=== PATIENT | male | born 1965 | race African-American/Black ===

== ENCOUNTER 2016-11-03 13:08 | Observation (INO) ==
[2016-11-03] MEDS ORDERED: Acetaminophen 325 MG TABLET PO PRN (15:58)
[2016-11-03] MEDS ORDERED: tiZANidine 4 MG TABLET PO PRN (15:58)
[2016-11-03] MEDS ORDERED: HydrOXYzine SYP 10 MG/5 ML UDC PO PRN (15:58)
[2016-11-03] MEDS ORDERED: Ondansetron 4 MG/2 ML VIAL IVP PRN (15:58)
[2016-11-03] MEDS ORDERED: *HR* OxyCODONE Immed Rel 5 MG TABLET PO PRN (15:58)
[2016-11-03] MEDS ORDERED: Naloxone 0.4 MG/ML INJ IVP PRN (15:58)
[2016-11-03] MEDS ORDERED: *HR* Promethazine 25 MG/ML VIAL IVP PRN (15:58)
[2016-11-03 16:05] LABS: Basophils # 0.1 K/mcL (0.0-0.2); Basophils % 0.8 %; Eosinophils # 0.2 K/mcL (0.0-0.6); Eosinophils % 2.8 %; Hematocrit 42.2 % (37.5-50.1); Immature Granulocytes % 0.3 % (0-4); Lymphocytes % 38.2 %; Mean Corpuscular HGB Conc 33.2 g/dL (31.6-35.5); Mean Corpuscular Volume 81.5 fL (83.0-100.0); Mean Platelet Volume 9.7 fL (9.4-12.4); Monocytes # 0.9 K/mcL (0.0-1.3); Monocytes % 11.8 %; Neutrophils # 3.6 K/mcL (1.6-8.9); Platelet Count 364 K/mcL (140-400); Red Blood Count 5.18 M/mcL (4.19-5.50); Red Cell Distribution Width 13.9 % (11.5-14.5); Segmented Neutrophils % 46.1 %
[2016-11-03 16:06] LABS: INR 1.1; Prothrombin Time 11.6 Seconds (9.4-12.1)
[2016-11-03 16:12] LABS: BUN/Creatinine Ratio 10 (6-26); Blood Urea Nitrogen 12 mg/dL (8-26); Carbon Dioxide 25 mEq/L (19-29); Chloride 109 mEq/L (98-109); Potassium 3.7 mEq/L (3.5-4.5); Sodium 144 mEq/L (136-145); eGFR For African Americans > 60 (> 60)
[2016-11-03 16:13] LABS: Calcium 9.5 mg/dL (8.6-10.8); Glucose 90 mg/dL (70-99); Osmolality,Calculated 297 (280-300); eGFR For Non-African Americans > 60 (> 60)
[2016-11-03 16:15] LABS: Albumin 3.5 g/dL (3.5-5.0); Albumin/Globulin Ratio 0.9 (1.1-2.2); Bilirubin,Direct 0.1 mg/dL (0.0-0.5); Bilirubin,Indirect 0.1 mg/dL (0.0-1.2); Bilirubin,Total 0.2 mg/dL (0.2-1.2); Globulin 3.7 g/dL (2.4-3.5); Total Protein 7.2 g/dL (6.0-8.3)
--- NOTE | 2016-11-03 17:01 | Internal Med History&Physical ---
Date of Encounter: 11/03/16 Time of Encounter: 16:57 Assessment and Plan (1) Intractable abdominal pain Current visit: Yes Status: Acute Start oxycodone and acetaminophen. Pain likely related to cholelithiasis. Avoid greasy foods which can cause gallbladder crisis. (2) Nausea and vomiting Current visit: Yes Status: Acute IV Zofran. IV fluids. Qualifiers: Vomiting type: unspecified Vomiting Intractability: intractable Qualified Code(s): R11.2 - Nausea with vomiting, unspecified (3) Symptomatic cholelithiasis Current visit: Yes Status: Acute He has had several pain crises secondary to gallbladder disease currently having intractable abdominal pain. We will consult general surgery for evaluation for cholecystectomy. (4) Cocaine abuse Current visit: Yes Status: Acute Advised cessation of cocaine use. I informed the patient about the health hazards of using cocaine. We will consult social science analyst. (5) Tobacco abuse Current visit: Yes Status: Acute I advised smoking cessation. We will provide nicotine patch. (6) Mild dehydration Current visit: Yes Status: Acute IV hydration with normal saline. (7) DVT prophylaxis Current visit: Yes Status: Acute Encourage early ambulation. He is fully ambulatory and therefore does not require pharmacological prophylaxis. Internal Medicine - H&P: HPI Chief complaint: Abdominal pain Admitted From: Home Plans for Post Hospital Care: Home History of present illness: Mr. Gordon is a 50 year old male with no significant past medical history who presented to the hospital as a direct admission from home for evaluation of abdominal pain. The patient had a emergency Department visit 5 days ago and at that time he will complain of abdominal pain and not being able to eat. He received intravenous hydration and was discharged home. As a follow-up the patient was called at home and he reported continued abdominal pain for the last 5 days and inability to eat. The patient was advised to come back to the hospital. Currently he reports dull aching right upper quadrant 6/10 abdominal pain, the pain is worse with eating greasy foods, is associated with nausea and one episode of nonbilious nonbloody vomiting this morning. Denies fevers chills chest pain shortness of breath looks swelling skin rashes headache visual loss, joint aches and pains, easy bruising or bleeding, history of blood clots. A 10 point review of systems was otherwise negative Family history positive for gallstones and the patient's mother and sister. Social history: Patient admits to smoking cocaine daily, last use was yesterday. She smokes 30 cigarettes a day, denies alcohol abuse. He is unemployed. Past Med Surg Social Fam HX - Past Medical History Medical history: other Psychiatric history: anxiety - Past Surgical History Surgical History: orthopedic, other - Social History Smoking Status: Current every day smoker Smokeless Tobacco Status: No Alcohol use: none Drug use: none Internal Medicine - H&P: Meds Gabapentin [Neurontin] 600 mg PO BID 09/10/16 [History] Hydroxyzine HCl 12.5 mg PO TID PRN 09/10/16 [History] Omeprazole [PriLOSEC] 40 mg PO DAILY 09/10/16 [History] Promethazine [Phenergan] 25 mg PO Q8HR 09/10/16 [History] Sertraline [Zoloft] 100 mg PO DAILY 09/10/16 [History] Tizanidine HCl [Tizanidine HCl] 4 mg PO Q8H PRN 09/10/16 [History] Trazodone HCl 100 mg PO HS 09/10/16 [History] Ondansetron [Zofran] 8 mg PO Q8HR PRN #10 tablet 10/31/16 [Rx] Allergies etodolac Adverse Reaction (Verified 09/10/16 09:11) See Comments anxiety All Systems PM: A 10-system review of systems was performed and is negative for pertinent findings except as documented above in the HPI. - Constitutional Vitals: Temp Pulse Resp BP Pulse Ox 97.6 F 85 18 116/72 96 11/03/16 15:15 11/03/16 15:15 11/03/16 15:15 11/03/16 15:15 11/03/16 15:15 General appearance: Present: A&O X 3 - Neck Neck exam general surgery: Present: supple, trachea midline. Absent: lymphadenopathy - Respiratory Respiratory exam: Present: CTAB. Absent: accessory muscle use, rales, rhonchi, wheezes - Cardiovascular Cardiovascular exam: Present: RRR, +S1, +S2. Absent: diastolic murmur, gallop, rubs, systolic murmur - GI/Abdominal GI/Abdominal exam: Present: normal bowel sounds, soft, no peritoneal signs. Absent: distended, tenderness - Extremities Exam Extremities exam: Present: warm, radial pulses palpable and symetrical. Absent : calf tenderness, cyanotic, pedal edema - Neurological Exam Neurological exam: Present: CN II-XII intact, oriented X3, no focal deficits. Absent: pronater drift, facial droop, speech deficit - Skin Skin exam: Present: dry, intact Internal Med - H&P Results - Labs CBC & Chem 7: 11/03/16 15:51 11/03/16 15:57 Labs: Short CBC 11/03/16 Range/Units 15:51 WBC 7.9 D (4.3-11.1) K/mcL Hgb 14.0 D (12.9-16.9) g/dL Hct 42.2 (37.5-50.1) % Plt Count 364 (140-400) K/mcL Neutrophils # 3.6 (1.6-8.9) K/mcL BMP 11/03/16 15:57 Sodium 144 Potassium 3.7 Chloride 109 Carbon Dioxide 25 BUN 12 Creatinine 1.15 Glucose 90 Calcium 9.5 Liver Function 11/03/16 Range/Units 15:57 Total Bilirubin 0.2 (0.2-1.2) mg/dL Direct Bilirubin 0.1 (0.0-0.5) mg/dL AST 30 (5-34) Units/L ALT 41 (0-55) Units/L Alkaline Phosphatase 65 (38-126) Units/L Albumin 3.5 (3.5-5.0) g/dL - Impressions Abdomen and pelvis CT from 10/30/2016 reveals no acute findings, calcified gallstones without acute cholecystitis.
[2016-11-03] MEDS: 0.9 % Sodium Chloride 1,000 ML IVC SCH (17:26)
[2016-11-03 18:29] LABS: Amphetamine Screen,Urine Negative ng/mL (Cutoff=1000); Barbiturate Screen,Urine Negative ng/mL (Cutoff=200); Benzodiazepines Screen,Urine Negative ng/mL (Cutoff=200); Cannabinoid Screen,Urine Positive ng/mL (Cutoff = 50); Cocaine Screen,Urine Positive ng/mL (Cutoff= 300); Opiate Screen,Urine Negative ng/mL (Cutoff=300); Phencyclidine Screen,Urine Negative ng/mL (Cutoff=25)
--- NOTE | 2016-11-03 19:08 | General Surgery Consult Note ---
<Fredrick Ayala - Last Filed: 11/04/16 11:16> Date of Encounter: 11/04/16 Time of Encounter: 18:35 Assessment and Plan (1) Symptomatic cholelithiasis Status: Acute CT noted calcifed gallstones. Patient having ongoing pain. Patient made NPO. Ordered HIDA scan for AM. Continue anti-emetics. Continue IV fluids. Continue supportive care/pain control. (2) Intractable abdominal pain Status: Acute See plan above. (3) Cocaine abuse Status: Acute (4) Tobacco abuse Status: Acute History of Present Illness Consult date: 11/03/16 Reason for consult: abdominal pain Requesting physician: Derek Barajas History of present illness: Mr. Gordon is a 50 year old male that presented with abdominal pain, also seen on 10/30/16 for same complaints. He states the pain has been off and on for approx 2 months and the pain does not stay in one area. Patient states the pain is a 10/10 in severity and currently located in his epigastric/RUQ area. He notes that the pain medication he has received has not helped the pain. Patient has a history of GERD with severe reflux, currently not controlled on PPI therapy in conjugation with carafate. He denies bloody emesis, denies dysuria, diarrhea, constipation, melena, or blood in stool. He states nothing makes the pain better and that eating anything makes the pain worse. He states he has seen Dr. Pop for EGD, record found from 09/10/16 with diagnosis of gastritis without bleeding. Patient admits to history to history of drug use, positive for cocaine. CT abdomen showed calcified gallstones, no pericholecystic edema. Past Med Surg Social Fam HX - Past Medical History Source: patient Medical history: no medical history, other Psychiatric history: anxiety - Past Surgical History Surgical History: orthopedic, other - Social History Smoking Status: Current every day smoker Packs per day: 1-2 Smokeless Tobacco Status: No Alcohol use: none Drug use: cocaine - Family History Mother Hx Family GI Disorders: Yes (gallstones) Medications and Allergies Gabapentin [Neurontin] 600 mg PO BID 09/10/16 [History] Hydroxyzine HCl 12.5 mg PO TID PRN 09/10/16 [History] Omeprazole [PriLOSEC] 40 mg PO DAILY 09/10/16 [History] Promethazine [Phenergan] 25 mg PO Q8HR 09/10/16 [History] Sertraline [Zoloft] 100 mg PO DAILY 09/10/16 [History] Tizanidine HCl 4 mg PO Q8H PRN 09/10/16 [History] Trazodone HCl 100 mg PO HS 09/10/16 [History] Ondansetron [Zofran] 8 mg PO Q8HR PRN #10 tablet 10/31/16 [Rx] HYDROcodone/Acet 5/325 mg [[place] 5-325 mg] 1 tab PO Q6H PRN 11/04/16 [History] Hyoscyamine SL [Levsin Sl] 0.125 mg SL Q8H 11/04/16 [History] Omeprazole [PriLOSEC] 20 mg PO DAILY@0730 #30 capsule. 11/04/16 [Rx] Sucralfate [Carafate] 1 gm PO QIDAC 11/04/16 [History] Allergies etodolac Adverse Reaction (Verified 11/04/16 14:02) Anxiety Review of Systems All systems PM: A 10-system review of systems was performed and is negative for pertinent findings except as documented above in the HPI. - Constitutional chills, fever(s), weakness - EENT Nose, mouth and throat: no dysphagia - Cardiovascular no chest pain, no dyspnea - Respiratory no cough, no dyspnea - Gastrointestinal abdominal pain, nausea, vomiting, no diarrhea, no melena - Genitourinary no flank pain - Integumentary no new lesions - Neurological dizziness, no confusion - Endocrine no excessive sweating General Surgery Exam Initial Vital Signs Temp Pulse Resp BP Pulse Ox 97.6 F 85 18 116/72 96 11/03/16 15:15 11/03/16 15:15 11/03/16 15:15 11/03/16 15:15 11/03/16 15:15 - General physical appearance well developed, well nourished, no distress - Eyes normal ocular movement - ENT normal mucosa, atraumatic, normocephalic - Neck trachea midline - Respiratory normal respiratory effort, clear to auscultation - Cardiovascular Cardiovascular exam: Present: RRR - Abdomen Abdomen general surgery: Present: bowel sounds present, soft, non tender ( patient shows no signs of tenderness on palpation.). Absent: distended, guarding, rebound, rigid - Integumentary Integumentary general surgery: Present: warm and dry, no abnormal pigmentation - Neurologic Present: CN 2-12 grossly intact - Psychiatric Psychiatric general surgery: Present: A&Ox3, speech is normal, memory intact Exam Initial Vital Signs Temp Pulse Resp BP Pulse Ox 97.6 F 85 18 116/72 96 11/03/16 15:15 11/03/16 15:15 11/03/16 15:15 11/03/16 15:15 11/03/16 15:15 Results - Labs 11/04/16 03:46 11/04/16 03:46 Abnormal lab results MCV 81.5 fL (83.0-100.0) L 11/03/16 15:51 MCH 27.0 pg (28.0-33.3) L 11/03/16 15:51 Globulin 3.7 g/dL (2.4-3.5) H 11/03/16 15:57 Albumin/Globulin Ratio 0.9 (1.1-2.2) L 11/03/16 15:57 Urine Cocaine Screen Positive ng/mL (Cutoff= 300) H 11/03/16 17:40 U Marijuana (THC) Screen Positive ng/mL (Cutoff = 50) H 11/03/16 17:40 Diabetes panel 11/03/16 11/03/16 Range/Units 15:57 15:57 Sodium 144 (136-145) mEq/L Potassium 3.7 (3.5-4.5) mEq/L Chloride 109 (98-109) mEq/L Carbon Dioxide 25 (19-29) mEq/L BUN 12 (8-26) mg/dL Creatinine 1.15 (0.72-1.25) mg/dL Glucose 90 (70-99) mg/dL Calcium 9.5 (8.6-10.8) mg/dL AST 30 (5-34) Units/L ALT 41 (0-55) Units/L Alkaline Phosphatase 65 (38-126) Units/L Albumin 3.5 (3.5-5.0) g/dL Calcium panel 11/03/16 11/03/16 Range/Units 15:57 15:57 Calcium 9.5 (8.6-10.8) mg/dL Albumin 3.5 (3.5-5.0) g/dL Pituitary panel 11/03/16 Range/Units 15:57 Sodium 144 (136-145) mEq/L Potassium 3.7 (3.5-4.5) mEq/L Chloride 109 (98-109) mEq/L Carbon Dioxide 25 (19-29) mEq/L BUN 12 (8-26) mg/dL Creatinine 1.15 (0.72-1.25) mg/dL Glucose 90 (70-99) mg/dL Calcium 9.5 (8.6-10.8) mg/dL Adrenal panel 11/03/16 11/03/16 Range/Units 15:57 15:57 Sodium 144 (136-145) mEq/L Potassium 3.7 (3.5-4.5) mEq/L Chloride 109 (98-109) mEq/L Carbon Dioxide 25 (19-29) mEq/L BUN 12 (8-26) mg/dL Creatinine 1.15 (0.72-1.25) mg/dL Glucose 90 (70-99) mg/dL Calcium 9.5 (8.6-10.8) mg/dL Total Bilirubin 0.2 (0.2-1.2) mg/dL AST 30 (5-34) Units/L ALT 41 (0-55) Units/L Alkaline Phosphatase 65 (38-126) Units/L Albumin 3.5 (3.5-5.0) g/dL All other labs normal. Consult Discharge Plan - Plan Additional Instructions: Follow-up with primary care provider as scheduled Referrals: Sharon Jain CNP [Primary Care Provider] - 11/12/16 1:15 pm Prescriptions: Omeprazole [PriLOSEC] 20 mg PO DAILY@729 #30 capsule. <Mitzy Pop - Last Filed: 11/05/16 11:30> Date of Encounter: 11/04/16 Assessment and Plan (1) Abdominal pain Status: Acute although I did not see the patient he is well known to me as well as his complaints and medical history. I agree with obtaining the hida scan which showed low EF at 38% but I did not get a chance to talk with him and see if he became symptomatic with the hida. will schedule outpatient followup Qualifiers: Abdominal location: generalized Qualified Code(s): R10.84 - Generalized abdominal pain (2) Nausea and vomiting Status: Resolved Qualifiers: Vomiting type: unspecified Vomiting Intractability: intractable Qualified Code(s): R11.2 - Nausea with vomiting, unspecified Review of Systems All systems PM: A 10-system review of systems was performed and is negative for pertinent findings except as documented above in the HPI. General Surgery Exam Initial Vital Signs Temp Pulse Resp BP Pulse Ox 97.6 F 85 18 116/72 96 11/03/16 15:15 11/03/16 15:15 11/03/16 15:15 11/03/16 15:15 11/03/16 15:15 Exam Initial Vital Signs Temp Pulse Resp BP Pulse Ox 97.6 F 85 18 116/72 96 11/03/16 15:15 11/03/16 15:15 11/03/16 15:15 11/03/16 15:15 11/03/16 15:15 Results - Labs 11/04/16 03:46 11/04/16 03:46 Abnormal lab results MCV 82.5 fL (83.0-100.0) L 11/04/16 03:46 MCH 26.9 pg (28.0-33.3) L 11/04/16 03:46 Chloride 112 mEq/L (98-109) H 11/04/16 03:46 Glucose 112 mg/dL (70-99) H 11/04/16 03:46 Albumin 3.0 g/dL (3.5-5.0) L 11/04/16 03:46 Albumin/Globulin Ratio 1.0 (1.1-2.2) L 11/04/16 03:46 Urine Cocaine Screen Positive ng/mL (Cutoff= 300) H 11/03/16 17:40 U Marijuana (THC) Screen Positive ng/mL (Cutoff = 50) H 11/03/16 17:40 Hepatitis C Ab Screen Reactive (Nonreactive) H 11/04/16 03:46 All other labs normal. - Attending Attestation Patient was discharged before I was able to see him. No charge for this consult.
[2016-11-03] MEDS ORDERED: Gabapentin 300 MG CAPSULE PO SCH (21:00)
[2016-11-03] MEDS ORDERED: traZODone 50 MG TABLET PO SCH (21:00)
[2016-11-04] MEDS: 0.9 % Sodium Chloride 1,000 ML IVC SCH (02:55)
[2016-11-04 04:46] LABS: Basophils # 0.1 K/mcL (0.0-0.2); Basophils % 0.7 %; Eosinophils # 0.2 K/mcL (0.0-0.6); Eosinophils % 3.2 %; Hematocrit 41.1 % (37.5-50.1); Hemoglobin 13.4 g/dL (12.9-16.9); Immature Granulocytes % 0.3 % (0-4); Lymphocytes # 3.7 K/mcL (0.6-4.6); Lymphocytes % 50.3 %; Mean Corpuscular HGB Conc 32.6 g/dL (31.6-35.5); Mean Corpuscular Hemoglobin 26.9 pg (28.0-33.3); Mean Corpuscular Volume 82.5 fL (83.0-100.0); Mean Platelet Volume 10.4 fL (9.4-12.4); Monocytes # 0.6 K/mcL (0.0-1.3); Monocytes % 8.1 %; Neutrophils # 2.8 K/mcL (1.6-8.9); Platelet Count 302 K/mcL (140-400); Red Blood Count 4.98 M/mcL (4.19-5.50); Red Cell Distribution Width 14.2 % (11.5-14.5); Segmented Neutrophils % 37.4 %
[2016-11-04 05:05] LABS: BUN/Creatinine Ratio 8 (6-26); Blood Urea Nitrogen 10 mg/dL (8-26); Carbon Dioxide 21 mEq/L (19-29); Chloride 112 mEq/L (98-109); Glucose 112 mg/dL (70-99); Osmolality,Calculated 294 (280-300); Potassium 3.9 mEq/L (3.5-4.5); Sodium 142 mEq/L (136-145); eGFR For African Americans > 60 (> 60); eGFR For Non-African Americans > 60 (> 60)
[2016-11-04 05:06] LABS: Bilirubin,Direct 0.1 mg/dL (0.0-0.5); Bilirubin,Indirect 0.1 mg/dL (0.0-1.2); Bilirubin,Total 0.2 mg/dL (0.2-1.2)
[2016-11-04] MEDS ORDERED: Nicotine 21 MG PATCH.TD24 TD SCH (09:00)
[2016-11-04 09:58] LABS: Hepatitis A Antibody IgM Nonreactive (Nonreactive); Hepatitis B Core IgM Nonreactive (Nonreactive); Hepatitis B Surface Antigen Nonreactive (Nonreactive)
[2016-11-04 10:18] LABS: Hepatitis C Virus Antibody Reactive (Nonreactive)
[2016-11-04 11:16] VITALS: BP 104/69
--- NOTE | 2016-11-04 14:24 | Discharge Summary ---
Date of Encounter: 11/04/16 Time of Encounter: 14:00 - Discharge Diagnosis (1) Abdominal pain Priority: Primary Status: Acute Comments: During this admission, the location of his abdominal pain was fluid. He initially reported right upper quadrant abdominal pain however on day of discharge, he complained of right lower quadrant that extended across his lower abdomen. He was able to tolerate a regular diet prior to discharge. Abdominal CT revealing cholelithiasis. HIDA scan performed which did not reveal any acute processes. We will add PPI to his regimen and have him follow up outpatient. Qualifiers: Abdominal location: generalized Qualified Code(s): R10.84 - Generalized abdominal pain (2) Cocaine abuse Priority: Secondary Status: Chronic Comments: Patient admits to daily cocaine abuse and declines counseling. Tox screen positive for cocaine and marijuana. services advisor on board for resources during this admission. (3) DVT prophylaxis Priority: Primary Status: Acute Comments: Observation patient. Up ad charlene. (4) Mild dehydration Priority: Primary Status: Resolved (5) Nausea and vomiting Priority: Primary Status: Resolved Comments: Was able to tolerate a regular diet prior to discharge. Follow-up outpatient. Qualifiers: Vomiting type: unspecified Vomiting Intractability: intractable Qualified Code(s): R11.2 - Nausea with vomiting, unspecified (6) Symptomatic cholelithiasis Priority: Primary Status: Ruled-out Comments: HIDA scan without acute processes. (7) Tobacco abuse Priority: Secondary Status: Chronic Comments: Declined counseling - Discharge Medications Prescriptions: Omeprazole [PriLOSEC] 20 mg PO DAILY@0730 #30 capsule. Home Medications: Gabapentin [Neurontin] 600 mg PO BID 09/10/16 [History] Hydroxyzine HCl 12.5 mg PO TID PRN 09/10/16 [History] Omeprazole [PriLOSEC] 40 mg PO DAILY 09/10/16 [History] Promethazine [Phenergan] 25 mg PO Q8HR 09/10/16 [History] Sertraline [Zoloft] 100 mg PO DAILY 09/10/16 [History] Tizanidine HCl 4 mg PO Q8H PRN 09/10/16 [History] Trazodone HCl 100 mg PO HS 09/10/16 [History] Ondansetron [Zofran] 8 mg PO Q8HR PRN #10 tablet 10/31/16 [Rx] HYDROcodone/Acet 5/325 mg [[place] 5-325 mg] 1 tab PO Q6H PRN 11/04/16 [History] Hyoscyamine SL [Levsin Sl] 0.125 mg SL Q8H 11/04/16 [History] Omeprazole [PriLOSEC] 20 mg PO DAILY@0730 #30 capsule. 11/04/16 [Rx] Sucralfate [Carafate] 1 gm PO QIDAC 11/04/16 [History] Allergies/Adverse Reactions: Allergies etodolac Adverse Reaction (Verified 11/04/16 14:02) Anxiety Procedures/tests Complete & Pending: Procedures Performed prior 72 hours Category Date Time Status NM hepatobiliary w drug [NM] Routine Exams 11/03/16 18:53 Completed Date of admission: 11/03/16 14:42 Primary care physician: Sharon Jain CNP Consults: 11/03/16 16:01 Consult to Physician [CONS] Routine Consulting Provider: Mitzy Pop Reason for Consult: Intractable abdominal pain, cholelithiasis Time Notified: 16:06 Call Completed: Yes 11/03/16 16:07 Consult to [employer]orer [CONS] Routine Reason for SW Consult: cocaine abuse Discharging clinician: Chelle Cobb Anticipated date of discharge: 11/04/16 - Patient Status Disposition: Home, Self-Care Condition: Good Functional capacity at discharge: independent ambulation Overall status at discharge: patient is back to baseline - Discharge Instructions Follow Up With: Sharon Jain CNP [Primary Care Provider] - 11/12/16 1:15 pm Additional Instructions: Follow-up with primary care provider as scheduled - Diet and Activity Activity: increase activity as tolerated Diet: regular diet Hospital course: Mr. Gordon is a 50 year old male with past medical history of daily cocaine abuse , tobacco abuse, marijuana abuse. Patient presented to emergency room for chief complaint intermittent abdominal pain for 2 months. Patient was seen on for the same complaint at which time he had a negative abdominal CT and was sent home. He also had an EGD in September that revealed gastritis and the recommendation was for Prilosec daily and follow up outpatient. Workup in the emergency department unremarkable other than a tox screen was positive for cocaine and marijuana. Patient was admitted to the hospitalist service further evaluation and management. Surgery was brought on board. HIDA scan performed which revealed no acute cholecystitis and a normal ejection fraction of the gallbladder. Given that his abdominal pain changes positions frequently (right upper quadrant upon admission, right lower quadrant upon discharge), no further workup was indicated. He was able to tolerate a regular diet prior to discharge. He was discharged home in stable condition with close outpatient follow-up recommended. ITS Impressions Liver Scan Nuclear Medicine 11/03/16 18:53 IMPRESSION: No evidence of acute cholecystitis. Gallbladder ejection fraction is within normal limits. D/ / Samuel Enamorado MD / Samuel Enamorado MD Interpreting Provider: Samuel Enamorado MD on 09/10/16 impression: Normal ampulla, first part of duodenum and second part of duodenum. Gastritis. Biopsy. Esophageal mucosal variant. Biopsied. Recommendation: Use Prilosec 20 mg by mouth daily for [address] without contrast impression on 10/30/16: No acute findings identified in the abdomen and pelvis. Cholelithiasis. - Time Spent with Patient Total time spent providing and/or coordinating discharge services: - Constitutional Vitals: Temp Pulse Resp BP Pulse Ox 97.6 F 76 18 104/69 99 11/04/16 11:15 11/04/16 11:15 11/04/16 11:15 11/04/16 11:15 11/04/16 11:35 General appearance: Present: A&O X 3, pleasant, no acute distress, answers questions appropriately - Head Head exam: Present: atraumatic, normocephalic - Eye Eye exam: Present: PERRL, conjuntiva pink, sclera anicteric Pupils: Present: PERRL - Neck Neck exam general surgery: Present: supple, trachea midline. Absent: lymphadenopathy - Respiratory Respiratory exam: Present: decreased breath sounds. Absent: accessory muscle use, rales, respiratory distress, rhonchi, wheezes - Cardiovascular Cardiovascular exam: Present: RRR, +S1, +S2. Absent: diastolic murmur, gallop, rubs, systolic murmur - GI/Abdominal GI/Abdominal exam: Present: normal bowel sounds, soft, tenderness (Diffuse), no peritoneal signs. Absent: distended - Extremities Exam Extremities exam: Present: warm, radial pulses palpable and symetrical. Absent : calf tenderness, cyanotic, pedal edema - Neurological Exam Neurological exam: Present: alert, CN II-XII intact, normal gait, oriented X3, no focal deficits, strengths equal and symetr throughout. Absent: pronater drift, facial droop, speech deficit - Skin Skin exam: Present: dry, intact, pallor, warm
== END 2016-11-04 15:40 | disposition home or self-care (01) ==
LOC: 3BNU → SUATTDRO 14:42
PROVIDERS: ADMIT Internal Medicine; ATTEND Nurse Practitioner Family

== ENCOUNTER 2017-04-14 01:22 | Observation (INO) ==
[2017-04-14] MEDS ORDERED: *HR* HYDROmorphone (PF) 1 MG/ML SYRINGE IVP ONE ×2 (04:12→05:34)
[2017-04-14] MEDS ORDERED: 0.9 % Sodium Chloride 1,000 ML IVC ONE (04:12)
[2017-04-14] MEDS ORDERED: Ondansetron 4 MG/2 ML VIAL IVP ONE ×3 (04:12→13:35)
--- NOTE | 2017-04-14 04:15 | Emergency Department Note ---
Disposition Clinical Impression: Right upper quadrant abdominal pain, Intractable abdominal pain Nausea and vomiting Qualifiers: Vomiting type: unspecified Vomiting Intractability: non-intractable Qualified Code(s): R11.2 - Nausea with vomiting, unspecified Disposition: Admitted As Inpatient Condition: Fair Referrals: Sharon Jain CNP [Primary Care Provider] - Forms: Work/School Release, ED Satisfaction Letter Abdominal Pain HPI - General Chief Complaint: ED Abdominal Pain Stated Complaint: RUQ abd pain Time Seen by Provider: 04/14/17 03:45 Source: patient Nursing Notes Reviewed: Yes Vital Signs Reviewed: Yes - History of Present Illness HPI Narrative: 51-year-old male who is scheduled later today for an outpatient cholecystectomy presents to the emergency department complaining of increased right upper quadrant abdominal pain with nausea and vomiting throughout the night. No fever. Pt Subjective Complaint: abdominal pain Pain Scale: 7 - Related Data Home Medications Medication Instructions Recorded Confirmed Gabapentin [Neurontin] 600 mg PO BID 09/10/16 11/18/16 Promethazine [Phenergan] 25 mg PO Q8HR PRN 09/10/16 11/18/16 Sertraline [Zoloft] 100 mg PO DAILY 09/10/16 11/18/16 Tizanidine HCl 4 mg PO Q8H PRN 09/10/16 11/18/16 Trazodone HCl 100 mg PO HS 09/10/16 11/18/16 hydrOXYzine HCl [Hydroxyzine HCl] 12.5 mg PO TID PRN 09/10/16 11/18/16 HYDROcodone/Acet 5/325 mg [[place] 1 tab PO Q6H PRN 11/04/16 11/18/16 5-325 mg] Hyoscyamine SL [Levsin Sl] 0.125 mg SL Q8H 11/04/16 11/18/16 Sucralfate [Carafate] 1 gm PO QIDAC 11/04/16 11/18/16 Previous Rx's Medication Instructions Recorded Ondansetron [Zofran] 8 mg PO Q8HR PRN #10 tablet 10/31/16 Omeprazole [PriLOSEC] 20 mg PO DAILY@0730 #30 capsule. 11/04/16 Allergies Allergy/AdvReac Type Severity Reaction Status Date / Time etodolac AdvReac Anxiety Verified 11/18/16 08:09 All systems ED: reviewed and negative except as stated. Constitutional: Denies: fever Cardiovascular: Denies: chest pain Respiratory: Denies: dyspnea Gastrointestinal: Reports: abdominal pain, nausea, vomiting. Denies: diarrhea, hematemesis, melena, hematochezia Genitourinary: Denies: dysuria Musculoskeletal: Denies: back pain Abdominal Pain PMH - Past Medical History Medical history: Reports: no medical history, other Psychiatric history: Reports: anxiety - Social History Smoking status: Current every day smoker Alcohol use: Reports: none Drug use: Reports: cocaine, marijuana Physical Exam - General Limitations: no limitations General appearance: alert, in no apparent distress - Head Head exam: atraumatic, normocephalic, normal inspection - Eye Eye exam: Present: normal appearance, PERRL, EOMI. Absent: conjunctival injection - ENT ENT exam: normal exam, normal oropharynx, mucous membranes dry - Neck Neck exam: Present: normal inspection, full ROM, trachea midline. Absent: tenderness, meningismus, lymphadenopathy - Chest Chest inspection: Present: normal inspection, symmetric chest wall rise. Absent : tenderness - Respiratory Respiratory exam: Present: normal lung sounds bilaterally. Absent: respiratory distress, wheezes - Cardiovascular Cardiovascular exam: Present: regular rate, normal rhythm, normal heart sounds - Abdominal Exam Abdominal exam: Present: soft, tenderness, normal bowel sounds. Absent: distention, guarding, rebound, rigidity Abdominal tenderness: Present: RUQ, moderate - Extremities Exam Extremities exam: Present: normal inspection - Back Exam Back exam: Present: normal inspection. Absent: CVA tenderness (R), CVA tenderness (L) - Neurological Exam Neurological exam: Present: alert, oriented X3. Absent: motor sensory deficit - Psychiatric Psychiatric exam: Present: normal affect, normal mood - Skin Skin exam: Present: warm, dry, intact. Absent: diaphoresis Course Course Narrative: Patient with known gallbladder disease scheduled later today for cholecystectomy presents with increased right upper quadrant pain and severe nausea and vomiting. Patient given IV fluids, Zofran, Dilaudid. Still complaining of pain after 2 doses of pain medication. The surgeon carton stamper was consulted and admitted patient to her service. - Consultations Consultation #1: The surgeon on-call, Dr. Pop, was consulted and accepted admission of the patient to her service. Time: 06:00 Vital Signs Temperature 98.8 F 04/14/17 01:29 Pulse Rate 99 04/14/17 01:29 Respiratory Rate 16 04/14/17 01:29 Blood Pressure 122/84 04/14/17 01:29 O2 Sat by Pulse Oximetry 96 04/14/17 01:29 Temperature 98.8 F 04/14/17 01:29 Pulse Rate 80 04/14/17 04:14 Respiratory Rate 18 04/14/17 04:14 Blood Pressure 145/105 04/14/17 04:14 O2 Sat by Pulse Oximetry 99 04/14/17 04:14 Oxygen Delivery Oxygen Delivery Room Air
[2017-04-14] MEDS ORDERED: 0.9 % Sodium Chloride 1,000 ML IVC SCH ×2 (06:15→15:22)
[2017-04-14 06:43] LABS: Basophils % 0.3 %; Eosinophils # 0.1 K/mcL (0.0-0.6); Eosinophils % 0.8 %; Hematocrit 41.9 % (37.5-50.1); Hemoglobin 13.6 g/dL (12.9-16.9); Immature Granulocytes % 0.7 % (0-4); Mean Corpuscular HGB Conc 32.5 g/dL (31.6-35.5); Mean Corpuscular Hemoglobin 26.4 pg (28.0-33.3); Mean Corpuscular Volume 81.2 fL (83.0-100.0); Mean Platelet Volume 10.5 fL (9.4-12.4); Monocytes # 0.6 K/mcL (0.0-1.3); Monocytes % 7.4 %; Neutrophils # 5.9 K/mcL (1.6-8.9); Platelet Count 319 K/mcL (140-400); Red Blood Count 5.16 M/mcL (4.19-5.50); Red Cell Distribution Width 14.3 % (11.5-14.5); Segmented Neutrophils % 67.8 %
[2017-04-14 06:44] LABS: Alanine Aminotransferase 50 Units/L (0-55); Albumin 3.7 g/dL (3.5-5.0); Albumin/Globulin Ratio 1.1 (1.1-2.2); Alkaline Phosphatase 83 Units/L (38-126); Aspartate Amino Transferase 40 Units/L (5-34); BUN/Creatinine Ratio 20 (6-26); Bilirubin,Direct 0.3 mg/dL (0.0-0.5); Bilirubin,Indirect 0.4 mg/dL (0.0-1.2); Bilirubin,Total 0.7 mg/dL (0.2-1.2); Blood Urea Nitrogen 17 mg/dL (8-26); Calcium 8.9 mg/dL (8.6-10.8); Carbon Dioxide 21 mEq/L (19-29); Chloride 111 mEq/L (98-109); Globulin 3.5 g/dL (2.4-3.5); Glucose 102 mg/dL (70-99); Osmolality,Calculated 290 (280-300); Potassium 3.9 mEq/L (3.5-4.5); Sodium 139 mEq/L (136-145); Total Protein 7.2 g/dL (6.0-8.3); eGFR For African Americans > 60 (> 60); eGFR For Non-African Americans > 60 (> 60)
[2017-04-14] MEDS ORDERED: *HR* Metoprolol 5 MG/5 ML VIAL IVP PRN ×2 (07:34→15:22)
[2017-04-14] MEDS ORDERED: Ondansetron 4 MG/2 ML VIAL IVP PRN ×2 (07:34→15:22)
[2017-04-14] MEDS ORDERED: *HR* Promethazine 25 MG/ML VIAL IVP PRN ×2 (07:34→15:22)
[2017-04-14] MEDS ORDERED: *HR* HYDROmorphone (PF) 1 MG/ML SYRINGE IVP PRN ×4 (07:38→15:39)
--- NOTE | 2017-04-14 07:48 | General Surg History&Physical ---
<Demario Deluca - Last Filed: 04/14/17 08:11> Date of Encounter: 04/14/17 Time of Encounter: 07:46 Assessment and Plan (1) Tobacco abuse Current Visit: No Status: Chronic Current smoker of 33 years. 1.5 PPD. History of Present Illness Chief complaint: abdominal pain HPI: Mr. Gordon is a very pleasant 51 year old male with an PMH of GERD, depression and chronic pain who presented to the [facility] Emergency Department with a chief complaint of right upper quadrant pain. Patient was scheduled for outpatient choelocystectomy but he came to the ED due to uncontrolled pain, nausea and non- bloodly emesis starting last night. On arrival to the ED, initial vitals were stable, CBC and BMP WNL and patient was given IV fluids, Zofran and Dilaudid. The pain was not improving after two doses and thus surgery was consulted for evaluation. He describes the pain as sharp, intermittent and 8/10. The pain does radiate to his back between his shoulders and unsure if worse after eating. He did not take any medications at home prior to ED. Last meal was yesterday evening. After evaluation, patient will be admitted to [facility] on pain control, NPO, IVF and PPI for laproscopic choleocystectomy this afternoon. ROS: General - none HEENT - none Cardiac - none Pulmonary - none Gastrointestinal - Abd pain Genitourinary - none Musculoskeletal - none Integumentary - none Psych - none PMH - GERD, Depression, Chronic pain FMH: - Mother (Depression, living) - Father - ( in 70s from heart disease) Surg Hx: - Traumatic right surgery (unknown date) Meds: Gabapentin [Neurontin] 600 mg PO BID 09/10/16 Sertraline [Zoloft] 100 mg PO DAILY 09/10/16 Tizanidine HCl 4 mg PO Q8H PRN 09/10/16 Trazodone HCl 100 mg PO HS 09/10/16 hydrOXYzine HCl [Hydroxyzine HCl] 12.5 mg PO TID PRN 09/10/16 Ondansetron [Zofran] 8 mg PO Q8HR PRN #10 tablet 10/31/16 Omeprazole [PriLOSEC] 20 mg PO DAILY 04/14/17 Allergy - Etodolac Social - Smokes 1.5PPD for 33 years, drinks twice a year, 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, not working and taking care of his mother Past Med Surg Social Fam HX - Past Medical History Medical history: no medical history, other Psychiatric history: anxiety - Past Surgical History Surgical History: orthopedic, other - Social History Smoking Status: Current every day smoker Packs per day: 1 Smokeless Tobacco Status: No Alcohol use: none Drug use: none - Family History Mother Living Status: Still Living Hx Family Cardiac Disorders: Yes (HTN) Hx Family Cancer: Yes (bone cancer) Hx Family GI Disorders: Yes (gallstones) Hx Family HEENT Disorders: Yes Medications and Allergies Gabapentin [Neurontin] 600 mg PO BID 09/10/16 [History] Sertraline [Zoloft] 100 mg PO DAILY 09/10/16 [History] Tizanidine HCl 4 mg PO Q8H PRN 09/10/16 [History] Trazodone HCl 100 mg PO HS 09/10/16 [History] hydrOXYzine HCl [Hydroxyzine HCl] 12.5 mg PO TID PRN 09/10/16 [History] Ondansetron [Zofran] 8 mg PO Q8HR PRN #10 tablet 10/31/16 [Rx] Omeprazole [PriLOSEC] 20 mg PO DAILY 04/14/17 [History] Allergies etodolac Adverse Reaction (Verified 11/18/16 08:09) Anxiety Review of Systems All systems PM: A 10-system review of systems was performed and is negative for pertinent findings except as documented above in the HPI. - Constitutional no fever(s), no headache(s), no weight gain, no weight loss - Cardiovascular no chest pain, no diaphoresis, no palpitations - Respiratory no cough - Gastrointestinal as per HPI - Genitourinary no dysuria - Musculoskeletal no myalgias - Integumentary no rash - Neurological no confusion General Surgery Exam Initial Vital Signs Temp Pulse Resp BP Pulse Ox 98.8 F 99 16 122/84 96 04/14/17 01:29 04/14/17 01:29 04/14/17 01:29 04/14/17 01:29 04/14/17 01:29 - General physical appearance well developed, well nourished, no distress - Eyes normal ocular movement - ENT normal mucosa - Neck trachea midline - Respiratory normal expansion, normal respiratory effort, clear to auscultation - Cardiovascular Cardiovascular exam: Present: RRR, no murmurs/rubs/gallops - Abdomen Abdomen general surgery: Present: bowel sounds present, soft, tender (RUQ with [place] +) - Neurologic Present: CN 2-12 grossly intact - Psychiatric Psychiatric general surgery: Present: A&Ox3 - Additional Findings Short CBC 04/14/17 Range/Units 06:18 WBC 8.7 (4.3-11.1) K/mcL Hgb 13.6 (12.9-16.9) g/dL Hct 41.9 (37.5-50.1) % Plt Count 319 (140-400) K/mcL Neutrophils # 5.9 (1.6-8.9) K/mcL BMP 04/14/17 Range/Units 06:18 Sodium 139 (136-145) mEq/L Potassium 3.9 (3.5-4.5) mEq/L Chloride 111 H (98-109) mEq/L Carbon Dioxide 21 (19-29) mEq/L BUN 17 (8-26) mg/dL Creatinine 0.84 (0.72-1.25) mg/dL Glucose 102 H (70-99) mg/dL Calcium 8.9 (8.6-10.8) mg/dL Liver Function 04/14/17 Range/Units 06:18 Total Bilirubin 0.7 (0.2-1.2) mg/dL Direct Bilirubin 0.3 (0.0-0.5) mg/dL AST 40 H (5-34) Units/L ALT 50 (0-55) Units/L Alkaline Phosphatase 83 (38-126) Units/L Albumin 3.7 (3.5-5.0) g/dL Vital Signs Temp Pulse Resp BP Pulse Ox 04/14/17 06:59 0 F L 18 118/70 04/14/17 04:14 80 18 145/105 99 04/14/17 01:29 98.8 F 99 16 122/84 96 Intake and Output 04/13/17 04/14/17 04/14/17 23:59 07:59 15:59 Other: Weight 70.76 kg Patient Weight 04/14/17 23:59 Weight 70.76 kg Results - Labs 04/14/17 06:18 04/14/17 06:18 Abnormal lab results MCV 81.2 fL (83.0-100.0) L 04/14/17 06:18 MCH 26.4 pg (28.0-33.3) L 04/14/17 06:18 Chloride 111 mEq/L (98-109) H 04/14/17 06:18 Glucose 102 mg/dL (70-99) H 04/14/17 06:18 AST 40 Units/L (5-34) H 04/14/17 06:18 All other labs normal. <Mitzy Pop - Last Filed: 04/14/17 13:07> Date of Encounter: 04/14/17 Time of Encounter: 13:03 Assessment and Plan (1) Nausea and vomiting Current Visit: No Status: Acute The assessment and plan as outlined above was discussed with the patient and/or family members who expressed understanding and agreement. All questions were answered. prn antiemetics Qualifiers: Vomiting type: unspecified Vomiting Intractability: intractable Qualified Code(s): R11.2 - Nausea with vomiting, unspecified (2) Symptomatic cholelithiasis Current Visit: No Status: Ruled-out The assessment and plan as outlined above was discussed with the patient and/or family members who expressed understanding and agreement. All questions were answered. patient has symptomatic cholelithiasis. Prn pain control npo, ivf will plan lap cholecystectomy, possible cholangiograms possible open, risks and benefits previously discussed in office last week, will proceed today (3) Tobacco abuse Current Visit: No Status: Chronic The assessment and plan as outlined above was discussed with the patient and/or family members who expressed understanding and agreement. All questions were answered. (4) DVT prophylaxis Current Visit: No Status: Acute The assessment and plan as outlined above was discussed with the patient and/or family members who expressed understanding and agreement. All questions were answered. History of Present Illness HPI: Mr. Gordon is a 51 year old male well known to me. He is scheduled as an outpatient to have his gallbladder removed this afternoon for symptomatic cholelithiasis. He is still have RUQ pain that isnt improving. He is also having nausea and emesis. He was admitted for pain and nausea/emesis control and will do the surgery as planned this afternoon. Review of Systems All systems PM: A 10-system review of systems was performed and is negative for pertinent findings except as documented above in the HPI. General Surgery Exam Initial Vital Signs Temp Pulse Resp BP Pulse Ox 98.8 F 99 16 122/84 96 04/14/17 01:29 04/14/17 01:29 04/14/17 01:29 04/14/17 01:29 04/14/17 01:29 - General physical appearance well nourished, no distress - Eyes PERRL, normal ocular movement - ENT normal mucosa, normocephalic - Neck trachea midline - Respiratory normal respiratory effort, clear to auscultation - Cardiovascular Cardiovascular exam: Present: RRR - Abdomen Abdomen general surgery: Present: bowel sounds present, soft, tender. Absent: guarding, rebound Abdominal Tenderness: Present: RUQ - Integumentary Integumentary general surgery: Present: warm and dry, no abnormal pigmentation. Absent: diaphoresis, rash - Neurologic Present: CN 2-12 grossly intact - Musculoskeletal Present: normal gait, normal posture - Psychiatric Psychiatric general surgery: Present: A&Ox3, speech is normal Results - Labs 04/14/17 06:18 04/14/17 06:18 Abnormal lab results MCV 81.2 fL (83.0-100.0) L 04/14/17 06:18 MCH 26.4 pg (28.0-33.3) L 04/14/17 06:18 Chloride 111 mEq/L (98-109) H 04/14/17 06:18 Glucose 102 mg/dL (70-99) H 04/14/17 06:18 AST 40 Units/L (5-34) H 04/14/17 06:18 All other labs normal. - Attending Attestation I examined this patient and my medical decision-making was reviewed with the INSTRUMENTATION CONTROLS ENGINEER/PA/Advanced Practice Nurse/Resident Physician. I agree with the documented findings, disposition and treatment plan as described except to the extent set forth below.
[2017-04-14] MEDS ORDERED: Pantoprazole 40 MG VIAL IVP SCH (09:00)
--- NOTE | 2017-04-14 12:48 | Anesthesia Evaluation PreOp ---
Date of Encounter: 04/14/17 Time of Encounter: 12:42 - Past History Planned Operation: Lap. Lacey. 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 Any Significant HX Other Medical History: GERD Anesthesia History: No Prior Anesthetic Complications, Past Anesthesia (Right leg repair, EGD) Alcohol Use: none Drug use: IV Drug Use Medications and Allergies Gabapentin [Neurontin] 600 mg PO BID 09/10/16 [History] Sertraline [Zoloft] 100 mg PO DAILY 09/10/16 [History] Tizanidine HCl 4 mg PO Q8H PRN 09/10/16 [History] Trazodone HCl 100 mg PO HS 09/10/16 [History] hydrOXYzine HCl [Hydroxyzine HCl] 12.5 mg PO TID PRN 09/10/16 [History] Ondansetron [Zofran] 8 mg PO Q8HR PRN #10 tablet 10/31/16 [Rx] Omeprazole [PriLOSEC] 20 mg PO DAILY 04/14/17 [History] Allergies etodolac Adverse Reaction (Verified 11/18/16 08:09) Anxiety - Meds/Allergy Pre-op Review Medications Reviewed: Yes Allergies Reviewed: Yes Beta Blockers on Current Med List: No Anesthesia Results - Labs 04/14/17 06:18 04/14/17 06:18 Anesthesia Exam O2 Sat Height 1.73 m Height 1.73 m Weight 70.488 kg Weight 70.76 kg O2 Sat by Pulse Oximetry 95 O2 Sat by Pulse Oximetry 95 O2 Sat by Pulse Oximetry 95 O2 Sat by Pulse Oximetry 99 O2 Sat by Pulse Oximetry 96 Vital Signs Temp Pulse Resp BP Pulse Ox 98.8 F 99 16 122/84 96 04/14/17 01:29 04/14/17 01:29 04/14/17 01:29 04/14/17 01:29 04/14/17 01:29 Vital Signs/O2 Sat, Most Current Temp Pulse Resp BP Pulse Ox 98.2 F 79 16 105/68 95 04/14/17 10:46 04/14/17 10:46 04/14/17 10:46 04/14/17 10:46 04/14/17 10:46 Height: 5'8'' Weight: 155# NPO (# of Hours): > 8 hrs Pain Scale: 0 Pain Scale Used: Numeric (1 - 10) - HEENT Pupil (Motor): Pupils equal, EOMI Mallampati: III Teeth: Normal Oral Opening: Greater than 3 - CONCRETE 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
[2017-04-14] MEDS ORDERED: *HR* FentaNYL (PF) 100 MCG/2 ML VIAL ONE (12:57)
[2017-04-14] MEDS ORDERED: *HR* HYDROmorphone 2 MG/ML SYRINGE ONE (12:57)
[2017-04-14] MEDS ORDERED: *HR* Propofol 200 MG/20 ML VIAL IVP ONE (12:57)
[2017-04-14] MEDS ORDERED: *HR* Midazolam HCl 2 MG/2 ML VIAL ONE (12:57)
[2017-04-14] MEDS ORDERED: cefOXitin 2,000 MG in D5% in Water (Mini-Bag+) 100 ML IVPB ONE (13:00)
[2017-04-14] MEDS ORDERED: Lidocaine -MPF 4% 5 ML AMPUL ONE (13:02)
[2017-04-14] MEDS ORDERED: *HR* Succinylcholine 200 MG/10 ML VIAL IVP ONE (13:03)
[2017-04-14] MEDS ORDERED: *HR* Rocuronium Bromide 50 MG/5 ML VIAL ONE (13:03)
[2017-04-14] MEDS ORDERED: Lidocaine -MPF 2% 2 ML VIAL ONE (13:03)
[2017-04-14] MEDS ORDERED: Albuterol 2.5 MG/3 ML NEBULIZER ONE (13:05)
[2017-04-14] MEDS ORDERED: Neostigmine Methylsulfate 3 MG/3 ML SYRINGE ONE (13:06)
[2017-04-14] MEDS ORDERED: *HR* Meperidine 25 MG/ML SYRINGE IVP PRN (13:35)
[2017-04-14] MEDS ORDERED: *HR* Labetalol 20 MG/4 ML SYRINGE IVP PRN (13:35)
[2017-04-14] MEDS ORDERED: Albuterol 2.5 MG/3 ML NEBULIZER IH ONE (13:35)
[2017-04-14] MEDS ORDERED: Naloxone 0.4 MG/ML INJ IVP PRN (13:35)
[2017-04-14] MEDS ORDERED: Ringers Solution, Lactated 1,000 ML IVC SCH (13:45)
[2017-04-14] MEDS ORDERED: Dexamethasone 4 MG/ML VIAL ONE (13:51)
[2017-04-14] MEDS ORDERED: Ondansetron 4 MG/2 ML VIAL ONE ×2 (13:51→14:44)
--- NOTE | 2017-04-14 14:28 | Operative Note ---
Date of procedure: 04/14/17 Pre-op diagnosis: symptomatic cholelithiasis Post-op diagnosis: same Procedure: Laparoscopic cholecystectomy Complications: None immediate Anesthesia: GETA, local Local Anesthetics: 0.5% Sensorcaine HCL SubQ (cc) (30) Surgeon: iMtzy Pop Theoretical Physicist: Hermelinda Dickson Estimated blood loss (cc): 3 Specimen: Gallbladder and contents Condition: stable Disposition: PACU Procedure in Detail: The patient was brought into the operating suite and placed supine on the operating table. Sign-in was performed and everyone was in agreement. Anesthesia was induced and patient was endotracheally intubated by anesthesia without incident and they also placed an OG tube. The abdomen was prepped and draped in the usual sterile fashion. A timeout was performed again everyone was in agreement. A supraumbilical incision was made through the skin into the subcutaneous tissue with an 11 blade. Towel clamps were placed on either side of the umbilicus for retraction. S retractors were used to dissect down to the anterior abdominal wall linea alba fascia. A Veress needle was placed through this incision and a water drop test confirmed placement and the abdomen was insufflated. The abdomen was entered with a 5 mm 0 degree laparoscope on a 5 mm X-asaf trocar. The area and entry was visualized was no bleeding and no apparent bowel injury. A 5 mm subxiphoid port was placed under direct visualization after first incising the skin with an 11 blade. A right upper quadrant subcostal position midclavicular line 5 mm port was placed under direct visualization after first incising skin with 11 blade. The laparoscope was placed in this and we exchanged the supraumbilical port for a 12 mm port under direct visualization. The last 5 mm port was placed in the right upper quadrant subcostal position anterior axillary line after first incising the skin with an 11 blade. The patient was placed in steep reverse Trendelenburg left side down position. The dome of the gallbladder was grasped and retracted cephalad. Omental adhesions to the body and infundibulum of the gallbladder were taken down bluntly with the [place]. The infundibulum was grasped and retracted laterally. Using the [place] we dissected out the cystic duct and cystic artery. Two 5 mm hemoclips were placed distally on the cystic duct, one proximally and it was transected with curved scissors. The cystic artery was doubly clipped proximally, once distally and transected with curved scissors. The gallbladder was removed off the cystic plate with the Bovie. Any bleeding points were stopped with the Bovie. The gallbladder was placed in a laparoscopic Endo Catch bag and removed via the supraumbilical incision site. The inferior edge of the liver was bluntly retracted cephalad and the cystic plate was copiously irrigated with sterile saline. There was no bleeding or apparent bile leak from the cystic plate and the clips on the cystic artery and duct were intact. All irrigation was suctioned free from the abdomen. All insufflation was suctioned free from the abdomen and the ports removed. The abdominal wall at the supraumbilical incision site was closed with a 0 Vicryl [id number] stitch. 30 mL of 0.5% Marcaine was injected subcutaneously at the 4 port sites. The skin at the three 5 mm port sites were closed with 4-0 Monocryl interrupted subcuticular stitches. The skin at the supraumbilical incision site was closed with a 4-0 Monocryl running subcuticular stitch. Steri -Strips were applied to all wounds. The patient was awoken in the operating suite having tolerated the procedure well and were taken to PACU in stable condition after all lap and ensuring counts were correct at the end of the case.
--- NOTE | 2017-04-14 14:31 | Discharge Summary ---
Date of Encounter: 04/14/17 Time of Encounter: 14:40 - Discharge Diagnosis (1) Nausea and vomiting Priority: Secondary Status: Acute Qualifiers: Vomiting type: unspecified Vomiting Intractability: intractable Qualified Code(s): R11.2 - Nausea with vomiting, unspecified (2) Symptomatic cholelithiasis Priority: Primary Status: Ruled-out (3) Tobacco abuse Priority: Secondary Status: Chronic (4) DVT prophylaxis Priority: Secondary Status: Acute - Discharge Medications Prescriptions: Docusate [Colace] 100 mg PO BID #30 capsule Oxycodone HCl [Oxaydo] 5 mg PO Q4-6H PRN #30 tablet.orl PRN Reason: Pain Home Medications: Gabapentin [Neurontin] 600 mg PO BID 09/10/16 [History] Sertraline [Zoloft] 100 mg PO DAILY 09/10/16 [History] Tizanidine HCl 4 mg PO Q8H PRN 09/10/16 [History] Trazodone HCl 100 mg PO HS 09/10/16 [History] hydrOXYzine HCl [Hydroxyzine HCl] 12.5 mg PO TID PRN 09/10/16 [History] Ondansetron [Zofran] 8 mg PO Q8HR PRN #10 tablet 10/31/16 [Rx] Docusate [Colace] 100 mg PO BID #30 capsule 04/14/17 [Rx] Omeprazole [PriLOSEC] 20 mg PO DAILY 04/14/17 [History] Oxycodone HCl [Oxaydo] 5 mg PO Q4-6H PRN #30 tablet.orl 04/14/17 [Rx] Allergies/Adverse Reactions: Allergies etodolac Adverse Reaction (Verified 11/18/16 08:09) Anxiety General Surgery Exam Initial Vital Signs Temp Pulse Resp BP Pulse Ox 98.8 F 99 16 122/84 96 04/14/17 01:29 04/14/17 01:29 04/14/17 01:29 04/14/17 01:29 04/14/17 01:29 - General physical appearance well nourished, no distress - Eyes normal ocular movement - ENT normal mucosa, normocephalic - Neck trachea midline - Respiratory normal expansion, normal respiratory effort - Cardiovascular Cardiovascular exam: Present: RRR - Abdomen Abdomen general surgery: Present: bowel sounds present, soft, tender ( appropriate post op tenderness) - Incision Incision: Present: clean and dry, intact - Integumentary Integumentary general surgery: Present: warm and dry, no abnormal pigmentation - Neurologic Present: CN 2-12 grossly intact - Musculoskeletal Present: normal posture - Psychiatric Psychiatric general surgery: Present: A&Ox3, speech is normal Date of admission: 04/14/17 06:43 Primary care physician: Sharon Jain CNP Discharging clinician: Mitzy Pop Anticipated date of discharge: 04/14/17 - Patient Status Disposition: Home, Self-Care Condition: Fair Overall status at discharge: patient is progressing back to baseline - Discharge Instructions Instructions: Laparoscopic Cholecystectomy (DC) Follow Up With: Sharon Jain CNP [Primary Care Provider] - Samreen Bergeron CNP [Advanced Practice Nurse] - 04/28/17 10:15 am Additional Instructions: No lifting more than 20 pounds for 2 weeks. Okay to take a shower in 24 hours. No tub baths or pools for 1 week. Okay to ride in the car wearing a seatbelt and climb steps. No driving until off narcotics for 24 hours and able to react safely Remove Steri-Strips in 1 week Do not take pain medicine/narcotics on an empty stomach it will likely cause nausea and possibly vomiting. If pain medication is too strong okay to break in half - Diet and Activity Activity: increase activity as tolerated Diet: advance to your usual diet - Hospital Course Hospital course: Mr. Gordon is a 51 year old male who is to be an outpatient laparoscopic cholecystectomy scheduled for today. Due to pain, nausea and vomiting he came in to the ER overnight and was admitted. He went for an uncomplicated laparoscopic cholecystectomy today. She was started on a clear diet and advanced. Pain is controlled initially with IV then by mouth pain medication. He is discharged home in stable condition. - Time Spent with Patient Total time spent providing and/or coordinating discharge services:
[2017-04-14] MEDS ORDERED: *HR* HYDROmorphone (PF) 1 MG/ML SYRINGE ONE (14:45)
--- NOTE | 2017-04-14 15:12 | Anesthesia Evaluation Post Op ---
Date of Encounter: 04/14/17 Time of Encounter: 15:11 - Vital Signs Vital Signs: Vital Signs/O2 Sat, Most Current Temp Pulse Resp BP Pulse Ox 98.2 F 79 16 105/68 95 04/14/17 10:46 04/14/17 10:46 04/14/17 10:46 04/14/17 10:46 04/14/17 10:46 - Lungs Lungs: Clear Ascult./Percussion - Airway Airway: Non-obstructed - Cardiovascular Regular Rate - Mental Status Mental Status: Alert & Oriented, Answers Appropriately - Pain Pain Scale: 0 Pain Scale used: Numeric (1 - 10) - Nausea Vomiting Nausea Vomiting: Present - Hydration Hydration: NPO, Has not voided - Discharge PostOp Status: Transfer Patient to floor
[2017-04-14] MEDS ORDERED: *HR* OxyCODONE Immed Rel 5 MG TABLET PO PRN (15:22)
[2017-04-14] MEDS ORDERED: Ibuprofen 600 MG TABLET PO PRN (15:39)
[2017-04-14] MEDS: *HR* OxyCODONE Immed Rel 5 MG TABLET PO PRN (16:53)
[2017-04-15] MEDS: *HR* OxyCODONE Immed Rel 5 MG TABLET PO PRN ×3 (00:02→09:23)
[2017-04-15 06:42] VITALS: BP 116/74
[2017-04-15] MEDS ORDERED: Pantoprazole 40 MG VIAL IVP SCH (09:00)
== END 2017-04-15 09:42 | disposition home or self-care (01) ==
LOC: 3ANU 01:22 → EMEROO 01:22 → 3ANU 07:01
PROVIDERS: ADMIT Surgery; ATTEND Surgery

== ENCOUNTER 2019-05-02 18:04 | Inpatient (IN) ==
[2019-05-02] MEDS ORDERED: Isovue-370 500 ML BOTTLE IVP ONE (19:32)
[2019-05-02] MEDS ORDERED: 0.9 % Sodium Chloride 1,000 ML IVC ONE (19:33)
[2019-05-02] MEDS ORDERED: Morphine Sulfate 2 MG/ML SYRINGE IVP STA (19:46)
[2019-05-02 20:29] LABS: Basophils # 0.1 K/mcL (0.0-0.2); Basophils % 0.9 %; Eosinophils # 0.1 K/mcL (0.0-0.6); Eosinophils % 1.2 %; Hematocrit 43.3 % (37.5-50.1); Immature Granulocytes % 0.2 % (0-4); Lymphocytes # 2.4 K/mcL (0.6-4.6); Lymphocytes % 29.8 %; Mean Corpuscular HGB Conc 32.3 g/dL (31.6-35.5); Mean Corpuscular Hemoglobin 25.8 pg (28.0-33.3); Mean Corpuscular Volume 79.7 fL (83.0-100.0); Mean Platelet Volume 9.7 fL (9.4-12.4); Monocytes # 0.8 K/mcL (0.0-1.3); Monocytes % 9.7 %; Neutrophils # 4.7 K/mcL (1.6-8.9); Platelet Count 368 K/mcL (140-400); Red Blood Count 5.43 M/mcL (4.19-5.50); Red Cell Distribution Width 13.6 % (11.5-14.5); Segmented Neutrophils % 58.2 %; White Blood Count 8.2 K/mcL (4.3-11.1)
[2019-05-02 20:50] LABS: BUN/Creatinine Ratio 11 (6-26); Blood Urea Nitrogen 12 mg/dL (6-20); Calcium 9.7 mg/dL (8.6-10.3); Carbon Dioxide 25 mEq/L (23-29); Chloride 105 mEq/L (98-107); Glucose 105 mg/dL (70-105); Osmolality,Calculated 290 (280-300); Potassium 3.6 mEq/L (3.5-5.1); Sodium 140 mEq/L (136-145); eGFR For African Americans > 60 (> 60); eGFR For Non-African Americans > 60 (> 60)
[2019-05-02] MEDS ORDERED: Piperacillin/Tazobactam 3.375 GM in Water for inj. (sterile) 20 ML IVP ONE (22:28)
[2019-05-02] MEDS ORDERED: Morphine Sulfate 2 MG/ML SYRINGE IVP ONE (23:12)
[2019-05-03] MEDS ORDERED: Naloxone 0.4 MG/ML INJ IVP PRN (01:01)
[2019-05-03] MEDS ORDERED: Nicotine 21 MG PATCH.TD24 TD PRN (01:12)
[2019-05-03] MEDS: 0.9 % Sodium Chloride 1,000 ML IVC SCH ×2 (01:38→15:07)
[2019-05-03 04:50] LABS: Hematocrit 37.9 % (37.5-50.1); Mean Corpuscular HGB Conc 32.5 g/dL (31.6-35.5); Mean Corpuscular Hemoglobin 26.1 pg (28.0-33.3); Mean Corpuscular Volume 80.3 fL (83.0-100.0); Mean Platelet Volume 10.5 fL (9.4-12.4); Platelet Count 330 K/mcL (140-400); Red Blood Count 4.72 M/mcL (4.19-5.50); Red Cell Distribution Width 13.7 % (11.5-14.5); White Blood Count 8.7 K/mcL (4.3-11.1)
[2019-05-03 04:52] LABS: Hemoglobin 12.3 g/dL (12.9-16.9)
[2019-05-03 06:06] LABS: BUN/Creatinine Ratio 10 (6-26); Blood Urea Nitrogen 11 mg/dL (6-20); Calcium 8.5 mg/dL (8.6-10.3); Carbon Dioxide 21 mEq/L (23-29); Chloride 111 mEq/L (98-107); Glucose 115 mg/dL (70-105); Osmolality,Calculated 288 (280-300); Potassium 3.7 mEq/L (3.5-5.1); Sodium 139 mEq/L (136-145); eGFR For African Americans > 60 (> 60); eGFR For Non-African Americans > 60 (> 60)
[2019-05-03 07:36] LABS: Prothrombin Time 11.4 Seconds (9.4-12.1)
[2019-05-03] MEDS: Piperacillin/Tazobactam 3.375 GM in 0.9 % Sodium Chloride Mini Bag 100 ML IVPB SCH ×2 (08:22→15:05)
[2019-05-03] MEDS ORDERED: *HR* LORazepam 1 MG TABLET PO PRN (11:27)
[2019-05-04] MEDS: Piperacillin/Tazobactam 3.375 GM in 0.9 % Sodium Chloride Mini Bag 100 ML IVPB SCH ×4 (00:11→23:10)
[2019-05-04] MEDS ORDERED: *HR* Midazolam HCl 2 MG/2 ML VIAL ONE (16:00)
[2019-05-04] MEDS ORDERED: *HR* Propofol 200 MG/20 ML VIAL IVP ONE (16:00)
[2019-05-04] MEDS ORDERED: Lidocaine -MPF 2% 2 ML VIAL ONE (16:00)
[2019-05-04] MEDS ORDERED: *HR* FentaNYL (PF) 100 MCG/2 ML VIAL ONE (16:00)
[2019-05-04] MEDS ORDERED: Ondansetron 4 MG/2 ML VIAL ONE (16:00)
[2019-05-04] MEDS ORDERED: Dexamethasone 4 MG/ML VIAL ONE (16:00)
[2019-05-04] MEDS ORDERED: Bupivacaine/EPI 1:200k 0.5%PF 10 ML VIAL ONE (16:06)
[2019-05-04] MEDS ORDERED: Albuterol 2.5 MG/3 ML NEBULIZER ONE (16:15)
[2019-05-04] MEDS ORDERED: Lidocaine HCL 4 ML Topical Solution (Laryng-O-Jet Kit Sterile Pak) TP ONE (16:41)
[2019-05-04] MEDS: *HR* HYDROmorphone (PF) 1 MG/ML SYRINGE IVP PRN ×4 (17:29→17:44)
[2019-05-04] MEDS ORDERED: *HR* Heparin 5,000 UNIT/ML VIAL SQ SCH (18:00)
[2019-05-04] MEDS ORDERED: Naloxone 0.4 MG/ML INJ IVP PRN (18:22)
[2019-05-04] MEDS ORDERED: Nicotine 21 MG PATCH.TD24 TD PRN (18:22)
[2019-05-04] MEDS ORDERED: *HR* HYDROmorphone (PF) 1 MG/ML SYRINGE IVP PRN (18:22)
[2019-05-05] MEDS: *HR* LORazepam 1 MG TABLET PO PRN ×3 (01:58→17:20)
[2019-05-05] MEDS: *HR* Heparin 5,000 UNIT/ML VIAL SQ SCH ×2 (05:02→17:11)
[2019-05-05 05:33] LABS: Hematocrit 41.9 % (37.5-50.1); Hemoglobin 13.6 g/dL (12.9-16.9); Mean Corpuscular HGB Conc 32.5 g/dL (31.6-35.5); Mean Corpuscular Hemoglobin 25.9 pg (28.0-33.3); Mean Corpuscular Volume 79.7 fL (83.0-100.0); Mean Platelet Volume 10.2 fL (9.4-12.4); Platelet Count 405 K/mcL (140-400); Red Blood Count 5.26 M/mcL (4.19-5.50); Red Cell Distribution Width 13.2 % (11.5-14.5); White Blood Count 9.6 K/mcL (4.3-11.1)
[2019-05-05 05:53] LABS: BUN/Creatinine Ratio 12 (6-26); Blood Urea Nitrogen 14 mg/dL (6-20); Calcium 9.6 mg/dL (8.6-10.3); Carbon Dioxide 24 mEq/L (23-29); Chloride 102 mEq/L (98-107); Glucose 222 mg/dL (70-105); Osmolality,Calculated 293 (280-300); Potassium 4.5 mEq/L (3.5-5.1); Sodium 138 mEq/L (136-145); eGFR For African Americans > 60 (> 60); eGFR For Non-African Americans > 60 (> 60)
[2019-05-05] MEDS: Piperacillin/Tazobactam 3.375 GM in 0.9 % Sodium Chloride Mini Bag 100 ML IVPB SCH ×3 (09:07→23:35)
[2019-05-05] MEDS ORDERED: Aminoglycoside Consult 1 EACH MC ONE (12:42)
[2019-05-06] MEDS: *HR* Heparin 5,000 UNIT/ML VIAL SQ SCH (05:17)
[2019-05-06 08:17] VITALS: BP 157/69
[2019-05-06] MEDS: Piperacillin/Tazobactam 3.375 GM in 0.9 % Sodium Chloride Mini Bag 100 ML IVPB SCH (08:40)
== END 2019-05-06 12:43 | disposition home or self-care (01) | DRG 317 ==
LOC: EMEROOARM 18:04 → 3BNU 18:04 → SUATTDRO 22:45 → 3BNU 23:38
PROVIDERS: ADMIT Pediatrics; ATTEND Family Medicine

== ENCOUNTER 2022-08-02 03:55 | Inpatient (IN) ==
[2022-08-02] MEDS ORDERED: Iopamidol - 370 500 ML MLS IVP ONE (04:10)
[2022-08-02 05:24] LABS: Basophils # 0.1 K/mcL (0.0-0.2); Basophils % 0.7 %; Eosinophils # 0.1 K/mcL (0.0-0.6); Eosinophils % 0.9 %; Hematocrit 47.2 % (37.5-50.1); Immature Granulocytes % 0.3 % (0-4); Lymphocytes # 3.1 K/mcL (0.6-4.6); Mean Corpuscular HGB Conc 33.9 g/dL (31.6-35.5); Mean Corpuscular Hemoglobin 26.9 pg (28.0-33.3); Mean Corpuscular Volume 79.5 fL (83.0-100.0); Mean Platelet Volume 10.4 fL (9.4-12.4); Monocytes % 9.5 %; Platelet Count 320 K/mcL (140-400); Red Blood Count 5.94 M/mcL (4.19-5.50); Red Cell Distribution Width 13.2 % (11.5-14.5); Segmented Neutrophils % 58.6 %; White Blood Count 10.3 K/mcL (4.3-11.1)
[2022-08-02 05:50] LABS: BUN/Creatinine Ratio 13 (6-26); Blood Urea Nitrogen 14 mg/dL (6-20); Calcium 9.9 mg/dL (8.6-10.3); Carbon Dioxide 20 mEq/L (23-29); Chloride 105 mEq/L (98-107); Glucose 93 mg/dL (70-105); Osmolality,Calculated 280 (280-300); Potassium 3.7 mEq/L (3.5-5.1); Sodium 135 mEq/L (136-145)
[2022-08-02] MEDS ORDERED: Ondansetron 4 MG/2 ML VIAL IVP ONE (06:13)
[2022-08-02 06:54] LABS: C-Reactive Protein < 5 mg/L (Less than 10)
[2022-08-02] MEDS ORDERED: Naloxone 0.4 MG/ML INJ IVP PRN (07:42)
[2022-08-02] MEDS ORDERED: Acetaminophen 325 MG TABLET PO PRN (07:42)
[2022-08-02] MEDS: 0.9 % Sodium Chloride 1,000 ML IVC SCH (10:45)
[2022-08-02] MEDS: Piperacillin/Tazobactam 3.375 GM in 0.9 % Sodium Chloride Mini Bag 100 ML IVPB SCH ×2 (10:45→18:01)
[2022-08-02] MEDS ORDERED: Lidocaine -MPF 2% 2 ML VIAL ONE (13:21)
[2022-08-02] MEDS ORDERED: *HR* FentaNYL (PF) 100 MCG/2 ML VIAL ONE (13:21)
[2022-08-02] MEDS ORDERED: *HR* Midazolam HCl 2 MG/2 ML VIAL ONE (13:21)
[2022-08-02] MEDS ORDERED: *HR* Propofol 200 MG/20 ML VIAL IVP ONE (13:21)
[2022-08-02] MEDS ORDERED: Ondansetron 4 MG/2 ML VIAL ONE (13:21)
[2022-08-02] MEDS ORDERED: Bacitracin OINT PKT TP ONE (13:31)
[2022-08-02] MEDS ORDERED: Lidocaine/EPI 1:100k 1% 50 ML VIAL ONE (13:31)
[2022-08-02] MEDS ORDERED: Ondansetron 4 MG/2 ML VIAL IVP PRN (15:03)
[2022-08-02] MEDS ORDERED: Albuterol 2.5 MG/3 ML NEBULIZER IH PRN (15:03)
[2022-08-02] MEDS ORDERED: *HR* Labetalol 20 MG/4 ML SYRINGE IVP PRN (15:03)
[2022-08-02] MEDS ORDERED: Ipratropium Neb 0.5 MG NEBULIZER IH PRN (15:03)
[2022-08-02] MEDS ORDERED: *HR* HYDROmorphone PF 0.5 MG/0.5 ML SYRINGE IVP PRN (15:03)
[2022-08-02] MEDS ORDERED: Acetaminophen IV 1,000 MG/100 ML BAG IVPB PRN (15:03)
[2022-08-02] MEDS ORDERED: *HR* OxyCODONE Immed Rel 5 MG TABLET PO PRN (15:03)
[2022-08-02] MEDS ORDERED: Morphine Sulfate 2 MG/ML SYRINGE IVP ONE (18:14)
[2022-08-03] MEDS: 0.9 % Sodium Chloride 1,000 ML IVC SCH ×2 (02:16→14:20)
[2022-08-03] MEDS: Piperacillin/Tazobactam 3.375 GM in 0.9 % Sodium Chloride Mini Bag 100 ML IVPB SCH ×3 (02:17→17:02)
[2022-08-03 11:51] LABS: Basophils % 0.4 %; Eosinophils # 0.1 K/mcL (0.0-0.6); Eosinophils % 0.6 %; Hematocrit 45.8 % (37.5-50.1); Hemoglobin 14.9 g/dL (12.9-16.9); Immature Granulocytes % 0.4 % (0-4); Lymphocytes # 1.9 K/mcL (0.6-4.6); Lymphocytes % 19.2 %; Mean Corpuscular HGB Conc 32.5 g/dL (31.6-35.5); Mean Corpuscular Hemoglobin 26.8 pg (28.0-33.3); Mean Corpuscular Volume 82.2 fL (83.0-100.0); Mean Platelet Volume 10.9 fL (9.4-12.4); Monocytes % 10.2 %; Platelet Count 234 K/mcL (140-400); Red Blood Count 5.57 M/mcL (4.19-5.50); Red Cell Distribution Width 13.6 % (11.5-14.5); Segmented Neutrophils % 69.2 %; White Blood Count 10.1 K/mcL (4.3-11.1)
[2022-08-03 12:10] LABS: Calcium 9.1 mg/dL (8.6-10.3); Potassium 5.4 mEq/L (3.5-5.1)
[2022-08-03] MEDS: Vancomycin 1,250 MG/262.5 ML IV.SOLN IVPB SCH (21:30)
[2022-08-04] MEDS: 0.9 % Sodium Chloride 1,000 ML IVC SCH (03:21)
[2022-08-04] MEDS: Piperacillin/Tazobactam 3.375 GM in 0.9 % Sodium Chloride Mini Bag 100 ML IVPB SCH ×3 (03:22→17:06)
[2022-08-04 07:17] LABS: Basophils # 0.1 K/mcL (0.0-0.2); Basophils % 0.6 %; Eosinophils # 0.2 K/mcL (0.0-0.6); Eosinophils % 1.9 %; Hematocrit 42.8 % (37.5-50.1); Immature Granulocytes % 0.4 % (0-4); Lymphocytes # 2.7 K/mcL (0.6-4.6); Lymphocytes % 27.2 %; Mean Corpuscular HGB Conc 32.7 g/dL (31.6-35.5); Mean Corpuscular Hemoglobin 26.9 pg (28.0-33.3); Mean Corpuscular Volume 82.3 fL (83.0-100.0); Mean Platelet Volume 10.6 fL (9.4-12.4); Monocytes # 1.1 K/mcL (0.0-1.3); Monocytes % 11.4 %; Neutrophils # 5.8 K/mcL (1.6-8.9); Platelet Count 268 K/mcL (140-400); Red Cell Distribution Width 13.5 % (11.5-14.5); Segmented Neutrophils % 58.5 %; White Blood Count 9.9 K/mcL (4.3-11.1)
[2022-08-04 07:28] LABS: Calcium 8.9 mg/dL (8.6-10.3); Potassium 4.5 mEq/L (3.5-5.1)
[2022-08-04] MEDS: Vancomycin 1,250 MG/262.5 ML IV.SOLN IVPB SCH ×2 (07:36→19:54)
[2022-08-05] MEDS: Piperacillin/Tazobactam 3.375 GM in 0.9 % Sodium Chloride Mini Bag 100 ML IVPB SCH ×3 (02:25→16:51)
[2022-08-05] MEDS: Vancomycin 1,250 MG/262.5 ML IV.SOLN IVPB SCH ×2 (07:51→18:09)
[2022-08-05] MEDS ORDERED: Lidocaine/EPI 1:100k 1% 50 ML VIAL ONE (12:34)
[2022-08-05] MEDS ORDERED: *HR* OxyCODONE Immed Rel 5 MG TABLET PO PRN (12:59)
[2022-08-05] MEDS: *HR* HYDROmorphone PF 0.5 MG/0.5 ML SYRINGE IVP PRN ×2 (14:15→14:20)
[2022-08-05 17:28] VITALS: TEMP 97.2
[2022-08-05 18:09] VITALS: BP 123/76; PULSE 99; O2SAT 96
== END 2022-08-05 23:59 | disposition other institution (70) | DRG 364 ==
LOC: 3BNU 03:55 → EMEROOARM 03:55 → SUATTDRO 06:38 → 3BNU 07:04 → SUATTDRO 13:32
PROVIDERS: ADMIT Internal Medicine; ATTEND Internal Medicine